=== PATIENT | female | born 1970 | race Caucasian/White ===

== ENCOUNTER 2018-07-04 07:01 | Day surgery (SDC) | payer OTHER ==
[2018-07-04 07:20] VITALS: BMI 34.1
[2018-07-04] MEDS ORDERED: Propofol 10 mg/ml Inj (20 ML) ONE ×2 (07:57→08:20)
--- NOTE | 2018-07-04 08:08 | CP.SDSHP ---
Same Day Surgery H & P - History Proposed Procedure: COLONSCOPY Pre-Op Diagnosis: SEE NOTES - Previous Medical/Surgical History Endocrine/Metabolic: Diabetes, Other Neuro: Backaches Misc: Other Pain: 4.Moderate Pain - Allergies Allergies: Allergies No Known Allergies Allergy (Verified 07/04/18 07:19) - Physical Exam General Appearance: N Vital Signs: Vital Signs 07/04/18 07:40 Temperature 97.6 F Pulse Rate 64 Respiratory 18 Rate Blood Pressure 118/67 O2 Sat by Pulse 98 Oximetry Mental Status: Alert & Oriented x3 Neuro: WNL Heart: Other Lungs: WNL GI: Other - {Optional Preform as Required} Breast: WNL Abdomen: Other Rectal: Other Integument: WNL : WNL Ortho: Other ENT: WNL - Impression Pt. Evaluated Today:Candidate for Anesthesia & Procedure: Yes - Date & Time Time: 08:08 Short Stay Discharge - Short Stay Discharge Admitting Diagnosis/Reason for Visit: RECTAL BLEEDING Disposition: HOME/ ROUTINE
[2018-07-04] MEDS ORDERED: Belladonna-Phenobarbital PO STA (08:10)
[2018-07-04 08:48] VITALS: TEMP 97.5; O2SAT 98
[2018-07-04 09:36] VITALS: BP 106/67; PULSE 64; RESP 12
== END 2018-07-04 09:32 | disposition home or self-care (01) ==
LOC: C.ENDO 07:01
PROVIDERS: ATTEND Specialist
DX: D12.2 Benign neoplasm of ascending colon (principal); K64.8 Other hemorrhoids
CPT/HCPCS: 45380; 82948; 84703; 88305; J2704